=== PATIENT | female | born 1945 | race Caucasian/White ===

== ENCOUNTER 2022-10-23 13:08 | Day surgery (SDC) | payer MEDICARE ==
--- NOTE | 2022-10-23 10:02 | HP ---
DATE OF SURGERY: 10/23/2022 HISTORY OF PRESENT ILLNESS: The patient is a 77-year-old with history of anemia. No bloody stools. No change in bowel movements. Family history negative for colon cancer. Last colonoscopy years ago. PAST MEDICAL HISTORY: Diabetes mellitus type II. Osteoarthritis. Hypothyroidism. Borderline hyperlipidemia. Hypertension. PAST SURGICAL HISTORY: Appendectomy. Cataract surgery. Cholecystectomy. Hysterectomy. Thyroid benign tumor in the past. EGD. Colonoscopy. Thyroidectomy in the past. MEDICATIONS: Tylenol, amlodipine, solifenacin, metformin, magnesium, meclizine, levothyroxine, B2/vitamins A, C and E, hydrochlorothiazide, Diphenoxylate/Atropine, atorvastatin, fluoxetine. ALLERGIES: SULFA. FAMILY HISTORY: Negative for colon cancer. SOCIAL HISTORY: No smoking or alcohol abuse. REVIEW OF SYSTEMS: Fourteen systems reviewed. No chest pain or palpitations. Other systems negative or noncontributory as above and per preadmission questionnaire. PHYSICAL EXAMINATION: Height 5' 7". BMI 32.89. GENERAL: No acute distress. HEENT: Sclerae nonicteric. NECK: No JVD. CHEST: Equal excursion, nonlabored breathing. CVS: Regular rate and rhythm. ABDOMEN: Soft. No peritoneal signs. EXTREMITIES: No significant edema. NEURO: Alert, oriented, moving extremities symmetrically. RECTAL: Deferred timed to endoscopy exam. PSYCH: Appropriate mood and affect. SKIN: Dry. IMPRESSION: Anemia. She is in need of EGD and colonoscopy for further evaluation for lower GI source of her anemia. She was shown the risk sheet and explained the procedure in detail including but not limited to bleeding or infection, risk of bowel injury or perforation, risk of missed or nondiagnosis or incomplete exam possibly requiring barium enema, other studies or procedures. General risk of anesthesia or sedation, risk of bowel prep but not limited to, consent obtained. Will proceed with outpatient EGD and colonoscopy under MAC anesthesia.
[2022-10-23] MEDS ORDERED: Lactated Ringers 1,000 ML IV SCH (14:00)
[2022-10-23] MEDS ORDERED: Lactated Ringers 1,000 ML IV ONE (14:11)
[2022-10-23] MEDS ORDERED: Xylocaine-Mpf 2% 5 Ml Vial ONE (14:21)
[2022-10-23] MEDS ORDERED: DIPRIVAN 200 MG/20 ML IV ONE ×3 (14:22→15:05)
[2022-10-23] MEDS ORDERED: Reglan 10 MG/2 ML ONE (15:08)
[2022-10-23 16:13] VITALS: BP 131/67; PULSE 80; O2SAT 95
--- NOTE | 2022-10-24 08:00 | OP ---
SURGERY DATE/TIME: 10/23/2022 6656 PREOPERATIVE DIAGNOSIS: Anemia, need for upper and lower endoscopy to rule out upper or lower GI source. POSTOPERATIVE DIAGNOSES: 1) Mild erosive gastritis. No evidence of any ulcers. 2) Short segment distal esophagitis. 3) Small early rectal polyps or hyperplastic lesion x2. 4) Withdrawal time total was about ten minutes. PROCEDURES: 1) EGD with cold biopsy of antrum for Helicobacter pylori. 2) Cold biopsy distal esophagus to evaluate for esophagitis. 3) Colonoscopy to cecum with some random cold biopsies colon to evaluate for microscopic colitis. 4) Hot biopsy polypectomy small early rectal polyp versus hyperplastic lesion. SURGEON: Dr. Drake Soares. ANESTHESIA: MAC. ESTIMATED BLOOD LOSS: Minimal. INDICATIONS: As noted above. Risks and benefits explained in detail and not limited to and consent obtained. DESCRIPTION OF PROCEDURE AND FINDINGS: The patient is taken to the operating room. MAC anesthesia introduced. After official time out and no disagreement with planned procedure, bite block positioned. Video gastroscope easily passed down the esophagus to the patent pylorus to the junction of the third and fourth portion of the duodenum. Duodenum grossly unremarkable. No signs of any ulcers, fresh or old blood. Scope pulled back into the stomach. She had some mild erosive gastritis, superficial erosions, nothing deep enough to call an ulcer. She may have lost a little bit of blood from this. On retroflex gastroesophageal junction snug against the scope. No signs of any hiatal hernia. No signs of any polyps, masses or other mucosal lesions other than mild gastritis. Cold biopsy taken in the antrum for Helicobacter pylori. Scope pulled back up distal esophagus. It had a short segment of less than 0.5 cm to 2 mm of some distal erosive esophagitis. Cold biopsy taken to evaluate for Helicobacter pylori. Good hemostasis noted. The scope is then withdrawn. The remainder of the esophagus grossly unremarkable. Attention is then turned to colonoscopy. Digital rectal exam did not reveal any rectal masses. She had some small internal and external hemorrhoids. Video colonoscope inserted and passed up the tortuous descending, transverse, ascending colon. She did have some retching. She had a wide open pylorus. The scope was finally with some external pressure able to pass to the cecum. Appendiceal area the ileocecal valve photo documented. Scope is then carefully withdrawn over the next ten minutes suctioning and irrigating out the liquidy stool. She had overall fair prep. Withdrawal time about ten minutes. ASA Class II. She had a little bit of redness of the colon. Cold biopsy taken to evaluate for microscopic colitis. There are no signs of any large polyps, masses or obstructing lesions. On withdrawal of the scope there were a couple of small early polyps versus hyperplastic lesion in the rectum removed with hot biopsy polypectomy. Good hemostasis noted. Otherwise random cold biopsies had been taken in the colon to evaluate for microscopic colitis. The patient tolerated the procedure well. Findings discussed with the family out in the waiting area. She will pass some blood from the rectal biopsy. She is to avoid any aspirin, nonsteroidals or blood thinners over the next week or so.
== END 2022-10-23 16:20 | disposition home or self-care (01) ==
LOC: SDC 13:08
PROVIDERS: ATTEND Surgery
DX: K29.70 Gastritis, unspecified, without bleeding (principal); D64.9 Anemia, unspecified; E11.9 Type 2 diabetes mellitus without complications; K20.90 Esophagitis, unspecified without bleeding; K62.1 Rectal polyp; K64.4 Residual hemorrhoidal skin tags; K64.8 Other hemorrhoids
CPT/HCPCS: 82947; 99100; J2704